=== PATIENT | male | born 1990 | race Caucasian/White ===

== ENCOUNTER 2020-06-12 09:24 | Emergency (ER) | payer MEDICAID, SELFPAY ==
[2020-06-12 09:28] VITALS: BMI 31.3
--- NOTE | 2020-06-12 10:34 | W.ED.DENTAL ---
HPI - Dental/Oral General: Chief complaint: Dental/Oral Stated complaint: dental pain and swelling Time Seen by Provider: 06/12/20 10:13 History of Present Illness: HPI Narrative: 30 yo male presents complaining of left lower jaw pain with swelling and inflammation that began yesterday. Has not had any fever or difficulty speaking or swallowing. He is currently residing at an inpatient recovery program for drugs and alcohol. MD Complaint: tooth pain Teeth map: 1. 2. Onset (ago): day(s) Duration: constant Severity: moderate Relieving factors: nothing Exacerbating factors: nothing Context: poor dental care Associated symptoms: Reports gum swelling; Denies ear or mastoid pain, fever(s), odynophagia, sore throat or tongue swelling Treatment prior to arrival: none Review of Systems Const: Denies: fever(s) ENMT: Denies: odynophagia or ear or mastoid pain Card: Denies: chest pain, edema, dyspnea on exertion or orthopnea Resp: Denies: dyspnea, productive cough or non-productive cough GI: Denies: abdominal pain, nausea, vomiting, hematemesis, coffee ground emesis, diarrhea, constipation, bloating, hematochezia or melena : Denies: flank pain, dysuria, urinary frequency or urinary urgency Skin/Breast: Denies: rash or pruritus All/Imm: Denies: tongue swelling Physical Exam Const: COMMON NORMALS: no acute distress GENERAL APPEARANCE: cooperative and comfortable ORIENTATION/CONSCIOUSNESS: Yes awake, Yes oriented to person, Yes oriented to place and Yes oriented to time HENMT: COMMON NORMALS: normocephalic, atraumatic and hearing grossly normal bilaterally HEAD & SCALP: normocephalic and atraumatic OTHER: Left mandibular premolar has significant swelling at the base with a fluctuant area this was incised and drained with an 18-gauge needle the large amount of purulent fluid coming out. Neck/C-Spine: COMMON NORMALS: full ROM, no lymphadenopathy, supple and no JVD Lymph: LYMPHATIC: no lymphadenopathy noted and no lymphedema noted Resp: COMMON NORMALS: normal respiratory effort, No retractions, No use of accessory muscles and clear to auscultation bilaterally AUSCULTATION: clear to auscultation bilaterally Cardio: COMMON NORMALS: no JVD, regular rate, regular rhythm and No murmurs present (Cardio) RATE: regular rate RHYTHM: regular rhythm Neuro: SENSORIUM/ORIENTATION: Yes oriented to person, Yes oriented to place and Yes oriented to time Skin: COMMON NORMALS: no rashes or lesions noted GENERAL SKIN EXAM: no rashes or lesions noted Procedures Abscess I/D Site: oral Side (if applicable): left Technique: other (Size of the bevel of an 18-gauge needle) Amount of fluid expressed (mL): 5 Irrigation: No Packing used?: none Discharge Plan Discharge Patient Disposition: Home Clinical Impression: Dental abscess Condition: Stable Prescriptions: New Augmentin 875-125 mg tablet 1 tab PO BID Qty: 20 RF: 0 Discharge Orders: Discharge Order (Routine); Ordered 06/12/20 Ordered By: Berny Graves Discharge Diet: Clear Liquid Discharge Activity: Resume usual activity Activity Restrictions/Additional Instructions: Follow-up with dentist as soon as you are able Coding Level of Care Code ED 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
[2020-06-12] MEDS: ketorolac 60 mg/2 mL INJ IM (11:18)
[2020-06-12 11:31] VITALS: PULSE 78; RESP 20; O2SAT 98
== END 2020-06-12 11:33 | disposition home or self-care (01) ==
PROVIDERS: Emergency Provider Family Medicine
DX: K04.7 Periapical abscess without sinus (principal)
CPT/HCPCS: 12345; 41800; 96372; 99281; 99283; J1885